=== PATIENT | female | born 1935 | race Caucasian/White ===

== ENCOUNTER 2016-09-14 16:07 | Outpatient (CLI) | payer MEDICARE, MEDICAID ==
[2016-09-14 18:14] LABS: ALT (SGPT) 8 U/L (0-55); AST (SGOT) 16 U/L (5-34); Alkaline Phosphatase 69 U/L (40-150); Anion Gap 21 mmol/L (10-20); BUN (Urea Nitrogen) 60 mg/dL (9.8-20.1); Bilirubin, Total 0.4 mg/dL (0.2-1.2); Calc. Creatinine Clearance 0 mL/min (70-130); Calcium 9.9 mg/dL (7.8-10.44); Carbon Dioxide 21 mmol/L (23-31); Chloride 105 mmol/L (98-107); Estimated GFR-MDRD 38; Globulin 2.8 g/dL (2.4-3.5); LDL Cholesterol, Calculated 127 mg/dL; Protein, Total 7.2 g/dL (5.8-8.1)
[2016-09-14 19:30] LABS: #Basophils 0.1 thou/uL (0.0-0.2); #Eosinphils 0.1 thou/uL (0.0-0.7); #Lymphocytes 1.5 thou/uL (1.20-3.40); #Monocytes 0.6 thou/uL (0.11-0.59); %Basophils 0.9 % (0.0-1.0); %Eosinophils 1.1 % (0.0-10.0); %Monocytes 6.2 % (0.0-10.0); Hematocrit 43.4 % (36.0-47.0); Mean Platelet Volume 6.8 fL (7.4-10.4); Red Blood Cell (RBC) Count 4.59 mill/uL (4.20-5.40); White Blood Cell (WBC) Count 10.3 thou/uL (4.8-10.8)
== END 2016-09-14 16:08 ==
LOC: HPCALD 16:07
PROVIDERS: ATTEND Family Medicine
DX: E78.00 Pure hypercholesterolemia, unspecified (principal); E03.9 Hypothyroidism, unspecified; I10 Essential (primary) hypertension; Z79.899 Other long term (current) drug therapy
CPT/HCPCS: 36415; 80053; 80061; 82607; 84439; 84443; 85025

== ENCOUNTER 2018-11-17 13:14 | Inpatient (IN) | payer MEDICARE, MEDICAID ==
[2018-11-17] MEDS ORDERED: PROVENTIL INHALER 6.7 G (200 INHALATIONS) INH PRN (17:20)
[2018-11-17] MEDS ORDERED: Acetaminophen 325 MG TAB PO PRN (17:20)
[2018-11-17] MEDS ORDERED: Ondansetron ODT 4 MG TAB PO PRN (17:20)
[2018-11-17] MEDS: Acetaminophen/Codeine 30-300mg Tablet PO PRN (18:05)
[2018-11-17] MEDS: Mometasone/Formoterol 60 PUFF AER INH SCH (19:11)
[2018-11-17] MEDS ORDERED: Ipratropium Bromide 2.5 ml Neb NEB SCH (19:30)
[2018-11-17] MEDS: guaiFENesin ER 600 MG TAB PO SCH (20:39)
[2018-11-17] MEDS: Atorvastatin Calcium 10 MG TAB PO SCH (20:40)
[2018-11-18] MEDS: Ipratropium Bromide 2.5 ml Neb NEB SCH ×4 (00:18→19:40)
[2018-11-18] MEDS: Levothyroxine Sodium 50 MCG TAB PO SCH (05:46)
[2018-11-18] MEDS: Mometasone/Formoterol 60 PUFF AER INH SCH ×2 (07:43→19:45)
[2018-11-18] MEDS: Enoxaparin Sodium 40 MG/0.4 ML SYRINGE SC SCH (08:22)
[2018-11-18] MEDS: Azelastine 137 MCG/Spray 30 ML NS SCH (08:22)
[2018-11-18] MEDS: guaiFENesin ER 600 MG TAB PO SCH ×2 (08:24→21:04)
[2018-11-18] MEDS: Saccharomyces boulardii 250 MG CAP PO SCH (08:24)
[2018-11-18] MEDS: predniSONE 20 MG TAB PO SCH (08:25)
[2018-11-18] MEDS: Amlodipine 5 MG TAB PO SCH (08:25)
[2018-11-18] MEDS: Furosemide 20 MG TAB PO SCH (08:25)
[2018-11-18] MEDS: Acetaminophen/Codeine 30-300mg Tablet PO PRN (12:39)
[2018-11-18] MEDS: Loratadine 10 MG TAB PO PRN (12:42)
[2018-11-18] MEDS: Atorvastatin Calcium 10 MG TAB PO SCH (21:04)
[2018-11-19] MEDS: Ipratropium Bromide 2.5 ml Neb NEB SCH ×4 (00:08→18:07)
[2018-11-19] MEDS: Levothyroxine Sodium 50 MCG TAB PO SCH (05:51)
[2018-11-19] MEDS: Mometasone/Formoterol 60 PUFF AER INH SCH ×2 (06:21→18:04)
[2018-11-19] MEDS: Saccharomyces boulardii 250 MG CAP PO SCH (08:09)
[2018-11-19] MEDS: Furosemide 20 MG TAB PO SCH (08:09)
[2018-11-19] MEDS: predniSONE 20 MG TAB PO SCH (08:09)
[2018-11-19] MEDS: guaiFENesin ER 600 MG TAB PO SCH ×2 (08:10→20:57)
[2018-11-19] MEDS: Amlodipine 5 MG TAB PO SCH (08:10)
[2018-11-19] MEDS: Azelastine 137 MCG/Spray 30 ML NS SCH (08:11)
[2018-11-19] MEDS: Enoxaparin Sodium 40 MG/0.4 ML SYRINGE SC SCH (08:11)
[2018-11-19] MEDS: Loratadine 10 MG TAB PO PRN ×3 (08:17→21:01)
[2018-11-19] MEDS: Acetaminophen/Codeine 30-300mg Tablet PO PRN ×2 (11:17→21:00)
[2018-11-19] MEDS: Atorvastatin Calcium 10 MG TAB PO SCH (20:57)
[2018-11-20] MEDS: Ipratropium Bromide 2.5 ml Neb NEB SCH ×4 (00:55→20:38)
[2018-11-20 05:20] LABS: #Basophils 0.1 thou/uL (0.0-0.2); #Eosinphils 0.5 thou/uL (0.0-0.7); #Lymphocytes 1.8 thou/uL (1.20-3.40); #Monocytes 0.5 thou/uL (0.11-0.59); #Neutrophils 9.2 thou/uL (1.40-6.50); %Basophils 0.6 % (0.0-1.0); %Eosinophils 4.3 % (0.0-10.0); %Lymphocytes 14.7 % (21.0-51.0); %Monocytes 3.9 % (0.0-10.0); %Neutrophils 76.5 % (42.0-75.0); ALT (SGPT) 14 U/L (8-55); AST (SGOT) 15 U/L (5-34); Albumin 3.8 g/dL (3.4-4.8); Alkaline Phosphatase 59 U/L (40-150); Anion Gap 13 mmol/L (10-20); BUN (Urea Nitrogen) 34 mg/dL (9.8-20.1); Bilirubin, Total 0.3 mg/dL (0.2-1.2); Calc. Creatinine Clearance 39 mL/min (70-130); Calcium 9.3 mg/dL (7.8-10.44); Carbon Dioxide 28 mmol/L (23-31); Chloride 103 mmol/L (98-107); Estimated GFR-MDRD 52; Globulin 2.4 g/dL (2.4-3.5); Glucose 144 mg/dL (83-110); Hemoglobin 11.8 g/dL (12.0-16.0); Mean Corpuscular HGB CONC 31.1 g/dL (32.0-36.0); Mean Corpuscular Hemoglobin 28.5 pg (27.0-31.0); Mean Corpuscular Volume 91.7 fL (78.0-98.0); Mean Platelet Volume 9.9 fL (7.4-10.4); Platelet Count 211 thou/uL (130-400); Potassium 3.2 mmol/L (3.5-5.1); Protein, Total 6.2 g/dL (6.0-8.3); RBC Distribution Width 13.7 % (11.5-14.5); Red Blood Cell (RBC) Count 4.14 mill/uL (4.20-5.40); Sodium 141 mmol/L (136-145)
[2018-11-20] MEDS: Mometasone/Formoterol 60 PUFF AER INH SCH ×2 (05:30→20:39)
[2018-11-20] MEDS: Levothyroxine Sodium 50 MCG TAB PO SCH (05:39)
[2018-11-20] MEDS: Acetaminophen/Codeine 30-300mg Tablet PO PRN (05:44)
[2018-11-20] MEDS ORDERED: Potassium Chloride 20 MEQ TAB PO SCH (08:00)
[2018-11-20] MEDS: Azelastine 137 MCG/Spray 30 ML NS SCH (08:56)
[2018-11-20] MEDS: Enoxaparin Sodium 40 MG/0.4 ML SYRINGE SC SCH (08:57)
[2018-11-20] MEDS: Polyethylene Glycol 3350 17 GM Packet PO SCH (08:58)
[2018-11-20] MEDS: Saccharomyces boulardii 250 MG CAP PO SCH (08:59)
[2018-11-20] MEDS: Furosemide 20 MG TAB PO SCH (08:59)
[2018-11-20] MEDS: Amlodipine 5 MG TAB PO SCH (08:59)
[2018-11-20] MEDS: guaiFENesin ER 600 MG TAB PO SCH ×2 (08:59→20:40)
[2018-11-20] MEDS: predniSONE 20 MG TAB PO SCH (09:00)
[2018-11-20] MEDS: Loratadine 10 MG TAB PO SCH (09:00)
[2018-11-20] MEDS: Atorvastatin Calcium 10 MG TAB PO SCH (20:40)
[2018-11-21] MEDS: Ipratropium Bromide 2.5 ml Neb NEB SCH ×3 (06:24→18:53)
[2018-11-21] MEDS: Mometasone/Formoterol 60 PUFF AER INH SCH ×2 (06:25→18:51)
[2018-11-21] MEDS: Levothyroxine Sodium 50 MCG TAB PO SCH (06:26)
[2018-11-21] MEDS: Azelastine 137 MCG/Spray 30 ML NS SCH (08:22)
[2018-11-21] MEDS: Amlodipine 5 MG TAB PO SCH (08:23)
[2018-11-21] MEDS ORDERED: Ventolin HFA Inhaler 60 PUFF INHALER INH PRN (08:23)
[2018-11-21] MEDS: guaiFENesin ER 600 MG TAB PO SCH ×2 (08:23→20:27)
[2018-11-21] MEDS: Saccharomyces boulardii 250 MG CAP PO SCH (08:23)
[2018-11-21] MEDS: Furosemide 20 MG TAB PO SCH (08:24)
[2018-11-21] MEDS: Loratadine 10 MG TAB PO SCH (08:24)
[2018-11-21] MEDS: predniSONE 20 MG TAB PO SCH (08:24)
[2018-11-21] MEDS: Enoxaparin Sodium 40 MG/0.4 ML SYRINGE SC SCH (08:24)
[2018-11-21] MEDS: Polyethylene Glycol 3350 17 GM Packet PO SCH (08:26)
[2018-11-21] MEDS: Acetaminophen/Codeine 30-300mg Tablet PO PRN ×2 (09:29→16:21)
[2018-11-21] MEDS: Atorvastatin Calcium 10 MG TAB PO SCH (20:27)
[2018-11-22] MEDS: Levothyroxine Sodium 50 MCG TAB PO SCH (06:06)
[2018-11-22] MEDS: Ipratropium Bromide 2.5 ml Neb NEB SCH ×3 (06:06→18:39)
[2018-11-22] MEDS: Mometasone/Formoterol 60 PUFF AER INH SCH ×2 (06:07→18:23)
[2018-11-22] MEDS: Loratadine 10 MG TAB PO SCH (08:25)
[2018-11-22] MEDS: guaiFENesin ER 600 MG TAB PO SCH ×2 (08:25→20:24)
[2018-11-22] MEDS: Saccharomyces boulardii 250 MG CAP PO SCH (08:25)
[2018-11-22] MEDS: Furosemide 20 MG TAB PO SCH (08:25)
[2018-11-22] MEDS: predniSONE 20 MG TAB PO SCH (08:26)
[2018-11-22] MEDS: Polyethylene Glycol 3350 17 GM Packet PO SCH (08:26)
[2018-11-22] MEDS: Amlodipine 5 MG TAB PO SCH (08:26)
[2018-11-22] MEDS: Enoxaparin Sodium 40 MG/0.4 ML SYRINGE SC SCH (08:26)
[2018-11-22] MEDS: Azelastine 137 MCG/Spray 30 ML NS SCH (08:31)
[2018-11-22] MEDS: Acetaminophen/Codeine 30-300mg Tablet PO PRN (18:44)
[2018-11-22] MEDS: Atorvastatin Calcium 10 MG TAB PO SCH (20:24)
[2018-11-23] MEDS: Ipratropium Bromide 2.5 ml Neb NEB SCH ×3 (06:03→18:14)
[2018-11-23] MEDS: Levothyroxine Sodium 50 MCG TAB PO SCH (06:03)
[2018-11-23] MEDS: Mometasone/Formoterol 60 PUFF AER INH SCH ×2 (06:04→18:09)
[2018-11-23] MEDS: guaiFENesin ER 600 MG TAB PO SCH ×2 (08:23→20:30)
[2018-11-23] MEDS: Saccharomyces boulardii 250 MG CAP PO SCH (08:23)
[2018-11-23] MEDS: Furosemide 20 MG TAB PO SCH (08:23)
[2018-11-23] MEDS: Loratadine 10 MG TAB PO SCH (08:23)
[2018-11-23] MEDS: predniSONE 20 MG TAB PO SCH (08:23)
[2018-11-23] MEDS: Enoxaparin Sodium 40 MG/0.4 ML SYRINGE SC SCH (08:24)
[2018-11-23] MEDS: Polyethylene Glycol 3350 17 GM Packet PO SCH (08:24)
[2018-11-23] MEDS: Azelastine 137 MCG/Spray 30 ML NS SCH (08:25)
[2018-11-23] MEDS: Amlodipine 5 MG TAB PO SCH (08:25)
[2018-11-23] MEDS: Acetaminophen/Codeine 30-300mg Tablet PO PRN ×2 (09:31→17:22)
[2018-11-23] MEDS: Atorvastatin Calcium 10 MG TAB PO SCH (20:30)
[2018-11-24] MEDS: Ipratropium Bromide 2.5 ml Neb NEB SCH ×3 (05:39→18:54)
[2018-11-24] MEDS: Levothyroxine Sodium 50 MCG TAB PO SCH (05:39)
[2018-11-24] MEDS: Mometasone/Formoterol 60 PUFF AER INH SCH ×2 (05:40→18:51)
[2018-11-24] MEDS: predniSONE 10 MG TAB PO SCH (08:40)
[2018-11-24] MEDS: Amlodipine 5 MG TAB PO SCH (08:40)
[2018-11-24] MEDS: Azelastine 137 MCG/Spray 30 ML NS SCH (08:41)
[2018-11-24] MEDS: Enoxaparin Sodium 40 MG/0.4 ML SYRINGE SC SCH (08:41)
[2018-11-24] MEDS: Loratadine 10 MG TAB PO SCH (08:42)
[2018-11-24] MEDS: guaiFENesin ER 600 MG TAB PO SCH ×2 (08:42→20:36)
[2018-11-24] MEDS: Furosemide 20 MG TAB PO SCH (08:42)
[2018-11-24] MEDS: Polyethylene Glycol 3350 17 GM Packet PO SCH (08:43)
[2018-11-24] MEDS: Saccharomyces boulardii 250 MG CAP PO SCH (08:43)
[2018-11-24] MEDS: Acetaminophen/Codeine 30-300mg Tablet PO PRN (16:11)
[2018-11-24 17:36] LABS: Anion Gap 14 mmol/L (10-20); BUN (Urea Nitrogen) 30 mg/dL (9.8-20.1); Calc. Creatinine Clearance 30 mL/min (70-130); Calcium 9.2 mg/dL (7.8-10.44); Carbon Dioxide 30 mmol/L (23-31); Chloride 100 mmol/L (98-107); Estimated GFR-MDRD 38; Glucose 122 mg/dL (83-110); Potassium 4.2 mmol/L (3.5-5.1); Sodium 140 mmol/L (136-145)
[2018-11-24] MEDS: Atorvastatin Calcium 10 MG TAB PO SCH (20:36)
[2018-11-25] MEDS: Levothyroxine Sodium 50 MCG TAB PO SCH (05:22)
[2018-11-25] MEDS: Mometasone/Formoterol 60 PUFF AER INH SCH ×2 (06:01→18:38)
[2018-11-25] MEDS: Ipratropium Bromide 2.5 ml Neb NEB SCH ×3 (06:04→18:40)
[2018-11-25] MEDS: guaiFENesin ER 600 MG TAB PO SCH ×2 (08:51→21:06)
[2018-11-25] MEDS: Polyethylene Glycol 3350 17 GM Packet PO SCH (08:51)
[2018-11-25] MEDS: Amlodipine 5 MG TAB PO SCH (08:52)
[2018-11-25] MEDS: Furosemide 20 MG TAB PO SCH (08:52)
[2018-11-25] MEDS: Saccharomyces boulardii 250 MG CAP PO SCH (08:52)
[2018-11-25] MEDS: Loratadine 10 MG TAB PO SCH (08:52)
[2018-11-25] MEDS: predniSONE 10 MG TAB PO SCH (08:52)
[2018-11-25] MEDS: Azelastine 137 MCG/Spray 30 ML NS SCH (08:54)
[2018-11-25] MEDS: Acetaminophen/Codeine 30-300mg Tablet PO PRN (08:54)
[2018-11-25] MEDS: Enoxaparin Sodium 40 MG/0.4 ML SYRINGE SC SCH (08:59)
[2018-11-25 16:38] LABS: Hemoglobin 11.1 g/dL (12.0-16.0); Platelet Count 214 thou/uL (130-400)
[2018-11-25] MEDS: Atorvastatin Calcium 10 MG TAB PO SCH (21:06)
[2018-11-26] MEDS: Mometasone/Formoterol 60 PUFF AER INH SCH ×2 (06:01→18:22)
[2018-11-26] MEDS: Levothyroxine Sodium 50 MCG TAB PO SCH (06:03)
[2018-11-26] MEDS: Ipratropium Bromide 2.5 ml Neb NEB SCH ×3 (06:03→18:24)
[2018-11-26] MEDS: Polyethylene Glycol 3350 17 GM Packet PO SCH (08:58)
[2018-11-26] MEDS: Loratadine 10 MG TAB PO SCH (08:58)
[2018-11-26] MEDS: Amlodipine 5 MG TAB PO SCH (08:59)
[2018-11-26] MEDS: guaiFENesin ER 600 MG TAB PO SCH ×2 (08:59→20:00)
[2018-11-26] MEDS: Furosemide 20 MG TAB PO SCH (08:59)
[2018-11-26] MEDS: Azelastine 137 MCG/Spray 30 ML NS SCH (08:59)
[2018-11-26] MEDS: Enoxaparin Sodium 40 MG/0.4 ML SYRINGE SC SCH (09:00)
[2018-11-26] MEDS: predniSONE 10 MG TAB PO SCH (09:00)
[2018-11-26] MEDS: Saccharomyces boulardii 250 MG CAP PO SCH (09:00)
[2018-11-26] MEDS: Acetaminophen/Codeine 30-300mg Tablet PO PRN ×2 (11:56→19:59)
[2018-11-26] MEDS: Atorvastatin Calcium 10 MG TAB PO SCH (20:00)
[2018-11-27 05:42] LABS: Hemoglobin 10.2 g/dL (12.0-16.0); Mean Corpuscular Hemoglobin 29.2 pg (27.0-31.0); Mean Corpuscular Volume 93.4 fL (78.0-98.0); Red Blood Cell (RBC) Count 3.51 mill/uL (4.20-5.40)
[2018-11-27 05:43] LABS: %Neutrophils 75.9 % (42.0-75.0); Mean Corpuscular HGB CONC 31.3 g/dL (32.0-36.0); Mean Platelet Volume 8.3 fL (7.4-10.4); Platelet Count 191 thou/uL (130-400); RBC Distribution Width 14.5 % (11.5-14.5)
[2018-11-27 05:44] LABS: #Basophils 0.1 thou/uL (0.0-0.2); #Eosinphils 0.5 thou/uL (0.0-0.7); #Lymphocytes 1.6 thou/uL (1.20-3.40); #Monocytes 0.9 thou/uL (0.11-0.59); #Neutrophils 9.9 thou/uL (1.40-6.50); %Basophils 0.9 % (0.0-1.0); %Eosinophils 3.6 % (0.0-10.0); %Lymphocytes 12.6 % (21.0-51.0)
[2018-11-27 05:46] LABS: Anion Gap 10 mmol/L (10-20); BUN (Urea Nitrogen) 34 mg/dL (9.8-20.1); Calc. Creatinine Clearance 48 mL/min (70-130); Calcium 8.9 mg/dL (7.8-10.44); Carbon Dioxide 30 mmol/L (23-31); Chloride 108 mmol/L (98-107); Estimated GFR-MDRD 66; Glucose 94 mg/dL (83-110); Sodium 144 mmol/L (136-145)
[2018-11-27] MEDS: Mometasone/Formoterol 60 PUFF AER INH SCH ×2 (06:05→17:44)
[2018-11-27] MEDS: Levothyroxine Sodium 50 MCG TAB PO SCH (06:05)
[2018-11-27] MEDS: Ipratropium Bromide 2.5 ml Neb NEB SCH ×3 (06:07→17:46)
[2018-11-27] MEDS: Polyethylene Glycol 3350 17 GM Packet PO SCH (08:31)
[2018-11-27] MEDS: Azelastine 137 MCG/Spray 30 ML NS SCH (08:31)
[2018-11-27] MEDS: Enoxaparin Sodium 40 MG/0.4 ML SYRINGE SC SCH (08:33)
[2018-11-27] MEDS: guaiFENesin ER 600 MG TAB PO SCH ×2 (08:34→20:12)
[2018-11-27] MEDS: Saccharomyces boulardii 250 MG CAP PO SCH (08:34)
[2018-11-27] MEDS: predniSONE 10 MG TAB PO SCH (08:35)
[2018-11-27] MEDS: Loratadine 10 MG TAB PO SCH (08:36)
[2018-11-27] MEDS: Amlodipine 5 MG TAB PO SCH (08:36)
[2018-11-27] MEDS: Furosemide 20 MG TAB PO SCH (08:36)
[2018-11-27] MEDS: Acetaminophen/Codeine 30-300mg Tablet PO PRN (13:23)
[2018-11-27 16:33] LABS: Hemoglobin 11.1 g/dL (12.0-16.0); Platelet Count 218 thou/uL (130-400)
[2018-11-27] MEDS: Atorvastatin Calcium 10 MG TAB PO SCH (20:12)
[2018-11-28] MEDS: Levothyroxine Sodium 50 MCG TAB PO SCH (05:55)
[2018-11-28] MEDS: Ipratropium Bromide 2.5 ml Neb NEB SCH ×3 (06:00→20:25)
[2018-11-28] MEDS: Mometasone/Formoterol 60 PUFF AER INH SCH ×2 (06:02→20:27)
[2018-11-28] MEDS: predniSONE 10 MG TAB PO SCH (08:45)
[2018-11-28] MEDS: Loratadine 10 MG TAB PO SCH (09:26)
[2018-11-28] MEDS: Amlodipine 5 MG TAB PO SCH (09:26)
[2018-11-28] MEDS: Furosemide 20 MG TAB PO SCH (09:26)
[2018-11-28] MEDS: guaiFENesin ER 600 MG TAB PO SCH ×2 (09:26→20:21)
[2018-11-28] MEDS: Enoxaparin Sodium 40 MG/0.4 ML SYRINGE SC SCH (09:27)
[2018-11-28] MEDS: Azelastine 137 MCG/Spray 30 ML NS SCH (09:28)
[2018-11-28] MEDS: Polyethylene Glycol 3350 17 GM Packet PO SCH (09:32)
[2018-11-28] MEDS: Saccharomyces boulardii 250 MG CAP PO SCH (09:38)
[2018-11-28] MEDS: Acetaminophen/Codeine 30-300mg Tablet PO PRN (11:09)
[2018-11-28] MEDS: Atorvastatin Calcium 10 MG TAB PO SCH (20:21)
[2018-11-29 05:46] LABS: Hemoglobin 10.4 g/dL (12.0-16.0); Platelet Count 220 thou/uL (130-400)
[2018-11-29] MEDS: Levothyroxine Sodium 50 MCG TAB PO SCH (06:03)
[2018-11-29] MEDS: Ipratropium Bromide 2.5 ml Neb NEB SCH ×2 (06:03→12:55)
[2018-11-29] MEDS: Mometasone/Formoterol 60 PUFF AER INH SCH (06:06)
[2018-11-29] MEDS: Polyethylene Glycol 3350 17 GM Packet PO SCH (08:33)
[2018-11-29] MEDS: Enoxaparin Sodium 40 MG/0.4 ML SYRINGE SC SCH (08:33)
[2018-11-29] MEDS: Saccharomyces boulardii 250 MG CAP PO SCH (08:37)
[2018-11-29] MEDS: guaiFENesin ER 600 MG TAB PO SCH (08:37)
[2018-11-29] MEDS: Furosemide 20 MG TAB PO SCH (08:37)
[2018-11-29] MEDS: predniSONE 10 MG TAB PO SCH (08:38)
[2018-11-29] MEDS: Loratadine 10 MG TAB PO SCH (08:38)
[2018-11-29] MEDS: Amlodipine 5 MG TAB PO SCH (08:39)
[2018-11-29] MEDS: Azelastine 137 MCG/Spray 30 ML NS SCH (08:40)
[2018-11-29] MEDS: Acetaminophen/Codeine 30-300mg Tablet PO PRN (09:51)
[2018-11-29 11:53] VITALS: BMI 26.4
[2018-11-30] MEDS ORDERED: Ipratropium Bromide 2.5 ml Neb ONE ×2 (05:18→20:44)
[2018-11-30] MEDS ORDERED: Ipratropium Bromide 2.5 ml Neb NEB ONE ×4 (05:54→19:00)
[2018-11-30] MEDS ORDERED: Levothyroxine Sodium 50 MCG TAB PO ONE (05:54)
[2018-11-30] MEDS ORDERED: guaiFENesin ER 600 MG TAB PO ONE ×2 (09:15→21:00)
[2018-11-30] MEDS ORDERED: Enoxaparin Sodium 40 MG/0.4 ML SYRINGE SC ONE (09:15)
[2018-11-30] MEDS ORDERED: Polyethylene Glycol 3350 17 GM Packet PO ONE (09:15)
[2018-11-30] MEDS ORDERED: Loratadine 10 MG TAB PO ONE (09:15)
[2018-11-30] MEDS ORDERED: Azelastine 137 MCG/Spray 30 ML NS ONE (09:15)
[2018-11-30] MEDS ORDERED: Saccharomyces boulardii 250 MG CAP PO ONE (09:15)
[2018-11-30] MEDS ORDERED: Furosemide 20 MG TAB PO ONE (09:15)
[2018-11-30] MEDS ORDERED: Amlodipine 5 MG TAB PO ONE (09:15)
[2018-11-30] MEDS ORDERED: Acetaminophen/Codeine 30-300mg Tablet PO ONE (10:10)
[2018-11-30] MEDS ORDERED: Acetaminophen 325 MG TAB ONE (20:43)
[2018-11-30] MEDS ORDERED: Acetaminophen 325 MG TAB PO ONE (20:50)
[2018-11-30] MEDS ORDERED: Atorvastatin Calcium 10 MG TAB PO ONE (21:00)
[2018-12-01 05:36] LABS: Hemoglobin 10.3 g/dL (12.0-16.0); Platelet Count 183 thou/uL (130-400)
[2018-12-01 06:28] VITALS: BP 131/60; TEMP 97.9
[2018-12-01] MEDS: Levothyroxine Sodium 50 MCG TAB PO SCH ×2 (07:55→08:01)
[2018-12-01] MEDS: Ipratropium Bromide 2.5 ml Neb NEB SCH (07:56)
[2018-12-01] MEDS: Mometasone/Formoterol 60 PUFF AER INH SCH (07:59)
[2018-12-01] MEDS: guaiFENesin ER 600 MG TAB PO SCH (08:01)
[2018-12-01] MEDS: Azelastine 137 MCG/Spray 30 ML NS SCH (08:03)
[2018-12-01] MEDS: Amlodipine 5 MG TAB PO SCH (08:03)
[2018-12-01] MEDS: Enoxaparin Sodium 40 MG/0.4 ML SYRINGE SC SCH (08:05)
[2018-12-01] MEDS: Furosemide 20 MG TAB PO SCH (08:05)
[2018-12-01] MEDS: Loratadine 10 MG TAB PO SCH (08:06)
[2018-12-01] MEDS: Saccharomyces boulardii 250 MG CAP PO SCH (08:07)
[2018-12-01] MEDS: Polyethylene Glycol 3350 17 GM Packet PO SCH (08:08)
--- NOTE | 2018-12-02 06:23 | DIS ---
DATE OF ADMISSION: 11/17/2018 DATE OF DISCHARGE: 12/01/2018 ADMISSION DIAGNOSES: Physical deconditioning, left lower lobe community- acquired pneumonia, and chronic obstructive pulmonary disease exacerbation. SECONDARY DIAGNOSES: Hypertension, dyslipidemia, hypothyroidism, chronic back pain, and gastroesophageal reflux disease. PROCEDURES: None. HOSPITAL COURSE: An 83-year-old female with underlying oxygen-dependent COPD, transitioned to our facility to participate with physical therapy and occupational therapy due to her physical deconditioning, status post admission to [facility] in [place], where she presented and was treated for COPD exacerbation with left lower lobe community-acquired pneumonia. After stabilizing at the other facility, she was too weak to return home, where she typically lives alone and thus transitioned here. While here, the patient completed a course of oral antibiotics and a steroid taper. She was resumed on her usual COPD medications and supplemental oxygen. She was able to work successfully with physical therapy and occupational therapy to meet the goals set to be able to return back to her home setting at this time. She has been arranged to have further physical therapy via [facility]. She feels to be back to her usual state of health and is amenable to discharge home at this time. DISPOSITION: The patient will discharge her home setting. She may follow up with myself in the clinic next week. She may also follow up with her medical driver, Dr. Villegas as scheduled. She will have [facility] for further skilled care/physical therapy and occupational therapy. DISCHARGE MEDICATIONS: The patient will resume her usual home medications, which include azelastine one spray daily nasally, Protonix 40 mg p.o. daily, Mucinex 600 mg daily p.r.n., Symbicort 160-4.5 two puffs b.i.d., levothyroxine 50 mcg p.o. daily, amlodipine 5 mg p.o. daily, Lasix 20 mg p.o. daily, Spiriva 18 mcg p.o. daily, Livalo 2 mg p.o. at bedtime, and Ventolin inhaler p.r.n. Job ID: [id number] [facility]
== END 2018-12-01 11:10 | disposition home or self-care (01) | DRG 194 ==
LOC: BURMED 15:00
PROVIDERS: ADMIT Family Medicine; ATTEND Family Medicine
DX: J18.1 Lobar pneumonia, unspecified organism (principal); J44.1 Chronic obstructive pulmonary disease with (acute) exacerbation; N39.0 Urinary tract infection, site not specified; E44.1 Mild protein-calorie malnutrition; I10 Essential (primary) hypertension; E78.5 Hyperlipidemia, unspecified; E03.9 Hypothyroidism, unspecified; G89.29 Other chronic pain; M54.9 Dorsalgia, unspecified; I25.10 Atherosclerotic heart disease of native coronary artery without angina pectoris; K21.9 Gastro-esophageal reflux disease without esophagitis; F17.210 Nicotine dependence, cigarettes, uncomplicated; I25.2 Old myocardial infarction; Z88.0 Allergy status to penicillin; Z95.1 Presence of aortocoronary bypass graft; Z90.710 Acquired absence of both cervix and uterus; Z90.49 Acquired absence of other specified parts of digestive tract; Z90.89 Acquired absence of other organs; Z68.26 Body mass index [BMI] 26.0-26.9, adult
CPT/HCPCS: 36415; 80048; 80053; 82565; 85014; 85018; 85025; 85049; 94640; 94664; J1650; J7512